=== PATIENT | male | born 2000 | race African-American/Black ===

== ENCOUNTER 2024-01-13 03:37 | Emergency (ER) | payer MEDICARE, MEDICAID ==
[~2024-01-13] VITALS: Ht 172.7 cm; Wt 57.0 kg
[~2024-01-13 03:37] MED LIST: OXYC-100 PO
[2024-01-13 03:54] VITALS: O2SAT 99
[2024-01-13] MEDS ORDERED: ONDANSETRON HCL 4MG/2ML INJ IV STA (05:16)
[2024-01-13] MEDS ORDERED: MORPHINE SULFATE 4 MG/ML INJ (FOR IV/IM USE) IV STA (05:16)
[2024-01-13] MEDS: HYDROCODONE/ACETAMINOPHEN 5/325MG TABLET PO ONE (07:30)
[2024-01-13] MEDS: MORPHINE SULFATE 4 MG/ML INJ (FOR IV/IM USE) IV NR (08:23)
[2024-01-13] MEDS: ONDANSETRON HCL 4MG/2ML INJ IV NR (08:23)
[2024-01-13 18:31] VITALS: BP 109/62; PULSE 78; RESP 18; TEMP 98.4
== END 2024-01-13 18:54 | disposition home or self-care (01) ==
LOC: ER 03:37
DX: R10.9 Unspecified abdominal pain (principal); L89.159 Pressure ulcer of sacral region, unspecified stage; Z98.890 Other specified postprocedural states
CPT/HCPCS: 74176; 99284

== ENCOUNTER 2024-01-14 19:26 | Emergency (ER) | payer MEDICARE, MEDICAID ==
[~2024-01-14] VITALS: Ht 177.8 cm; Wt 68.0 kg
[2024-01-14 19:48] VITALS: O2SAT 97
[2024-01-14] MEDS: OXYCODONE HCL/ACETAMINOPHEN 5/325MG TABLET PO ONE (21:01)
[2024-01-15 12:57] VITALS: BP 116/74; PULSE 70; RESP 16; TEMP 97
[2024-01-15 12:58] VITALS: BP 116/74; PULSE 70; RESP 16; TEMP 97
[2024-01-15 14:47] VITALS: BP 103/76; PULSE 70
== END 2024-01-15 12:45 | disposition left against medical advice (07) ==
LOC: ER 19:26 → UNDOADMIN 01-15 08:01 → 5WST 01-15 08:01 → ER 01-15 12:45 → UNDODISIN 01-15 15:15 → ER 01-16 06:49
DX: T83.028A Displacement of other urinary catheter, initial encounter (principal); X58.XXXA Exposure to other specified factors, initial encounter
CPT/HCPCS: 99285

== ENCOUNTER 2024-02-02 14:28 | Emergency (ER) | payer MEDICARE, MEDICAID ==
[~2024-02-02] VITALS: Ht 175.3 cm; Wt 59.0 kg
[2024-02-02 14:35] VITALS: O2SAT 100
[2024-02-02 23:20] VITALS: BP 110/68; PULSE 82; RESP 18; O2SAT 100
== END 2024-02-02 23:30 | disposition left against medical advice (07) ==
LOC: ER 14:28
DX: K62.5 Hemorrhage of anus and rectum (principal); Z98.890 Other specified postprocedural states
CPT/HCPCS: 99283

== ENCOUNTER 2024-02-11 14:59 | Inpatient (IN) | payer MEDICARE, MEDICAID ==
[~2024-02-11] VITALS: Ht 165.1 cm; Wt 55.3 kg
[2024-02-11] MEDS: MORPHINE SULFATE 4 MG/ML INJ (FOR IV/IM USE) IV ONE (15:35)
[2024-02-11] MEDS: PIPERACILLIN/TAZO 3.375G/50ML 50 ML IV ONE (17:45)
[2024-02-11] MEDS: VANCOMYCIN 1G PREMIX 200 ML IV ONE (18:23)
[2024-02-11] MEDS ORDERED: ACETAMINOPHEN 325MG TABLET PO PRN ×2 (22:45)
[2024-02-11] MEDS ORDERED: DOCUSATE SODIUM 100MG CAPSULE PO PRN (22:45)
[2024-02-11] MEDS ORDERED: CLONIDINE 0.1MG TABLET PO PRN (22:45)
[2024-02-11] MEDS ORDERED: GUAIFENESIN 200MG/10ML SUGAR FREE UDC PO PRN (22:45)
[2024-02-11] MEDS ORDERED: IPRATROPIUM/ALBUTEROL 0.5-3(2.5)MG/3ML NEB HHN PRN (22:45)
[2024-02-11] MEDS ORDERED: MAGNESIUM/ALUMINUM HYDROXIDE/SIMETHICONE 30ML UDC PO PRN (22:45)
[2024-02-11] MEDS ORDERED: LORAZEPAM 0.5MG TABLET PO PRN (22:45)
[2024-02-11] MEDS ORDERED: ONDANSETRON HCL 4MG/2ML INJ IV PRN (22:45)
[2024-02-11] MEDS: HYDROCODONE/ACETAMINOPHEN 7.5/325MG TABLET PO PRN (23:50)
[2024-02-11] MEDS: PIPERACILLIN/TAZO 3.375G/50ML 50 ML IV NR (23:50)
[2024-02-12 06:43] LABS: BASOPHILS % 0.4 % (0.0-2.0); DIFFERENTIAL COMMENT 0; EOSINOPHILS % 1.9 % (0.0-5.0); HEMATOCRIT. 34.8 % (42.0-52.0); HEMOGLOBIN. 10.2 g/dL (14.0-18.0); LYMPHOCYTES % 38.3 % (20.0-50.0); MEAN CORPUSCULAR HEMOGLOBIN 20.8 pg (28.0-32.0); MEAN CORPUSCULAR HGB CONC 29.4 g/dL (31.0-37.0); MEAN CORPUSCULAR VOLUME 70.9 fL (80.0-94.0); MEAN PLATELET VOLUME 6.8 fl (7.4-10.4); MONOCYTES % 8.7 % (2.0-8.0); NEUTROPHILS % 50.7 % (40.0-76.0); PLATELET 301 x1000/uL (130-400); RED BLOOD CELL COUNT 4.91 mill/uL (4.7-6.1); RED CELL DISTRIBUTION WIDTH 20.9 % (11.6-14.6); WHITE BLOOD COUNT 4.6 x1000/uL (4.5-11.0)
[2024-02-12 06:56] LABS: CHLORIDE 106 mEq/L (98-107); POTASSIUM 3.9 mEq/L (3.5-5.1); SODIUM 140 mEq/L (136-145)
[2024-02-12 06:57] LABS: CALCIUM 9.1 mg/dL (8.7-10.4); CARBON DIOXIDE 31 mEq/L (21-32)
[2024-02-12 07:02] LABS: CREATININE 0.6 mg/dL (0.6-1.3); GLUCOSE 75 mg/dL (70-105); UREA NITROGEN BLOOD 15 mg/dL (9-23)
[2024-02-12 07:04] LABS: CREATINE KINASE 73 IU/L (46-171)
[2024-02-12 07:05] LABS: ALANINE AMINOTRANSFERASE < 7 IU/L (10-49); ALBUMIN 3.7 g/dL (3.2-4.8); ALBUMIN 3.8 g/dL (3.2-4.8); ASPARTATE AMINOTRANSFERASE 12 IU/L (<34); BILIRUBIN TOTAL < 0.2 mg/dL (0.1-1.0); PROTEIN TOTAL 7.7 g/dL (6.0-8.3)
[2024-02-12 07:08] LABS: T4 FREE 0.93 ng/dL (0.89-1.76); THYROID STIMULATING HORMONE 0.88 uIU/mL (0.55-4.78)
[2024-02-12 07:12] LABS: BILIRUBIN DIRECT < 0.1 mg/dL (<=3.0)
[2024-02-12] MEDS ORDERED: NALOXONE HCL 0.4MG/ML VIAL IV PRN (07:30)
[2024-02-12] MEDS: ENOXAPARIN 40MG/0.4ML SYR SUBCUT SCH (09:15)
[2024-02-12] MEDS: PIPERACILLIN/TAZO 3.375G/50ML 50 ML IV NR (10:06)
[2024-02-12] MEDS: FERROUS SULFATE 325MG TABLET PO SCH (11:06)
[2024-02-12 11:47] LABS: IRON 20 ug/dL (65-175)
[2024-02-12 11:50] LABS: TOTAL IRON BINDING CAPACITY 336 ug/dl (250-425)
[2024-02-12 12:00] VITALS: BP 106/69; PULSE 96; RESP 18; TEMP 36.114; O2SAT 97
[2024-02-12 14:01] VITALS: BP 115/82; PULSE 88; RESP 18; TEMP 36.2512
[2024-02-12] MEDS: HYDROCODONE/ACETAMINOPHEN 5/325MG TABLET PO PRN (17:53)
[2024-02-12] MEDS: PIPERACILLIN/TAZO 3.375G/50ML 50 ML IV SCH (18:38)
[2024-02-12] MEDS: FAMOTIDINE 20MG TABLET PO SCH (21:00)
[2024-02-13] MEDS ORDERED: LIDOCAINE HCL/EPINEPHRINE 1%-EPI 1:100,000 20ML VIAL INFIL NR (09:00)
[2024-02-13 12:00] VITALS: BP 113/67; PULSE 79; RESP 19; O2SAT 96
[2024-02-13] MEDS ORDERED: VANCOMYCIN 1.5GM/250ML IV NR (18:30)
[2024-02-13 20:00] VITALS: BP 102/64; PULSE 99; RESP 19; TEMP 36.61404; O2SAT 100
[2024-02-14] MEDS: VANCOMYCIN 1.25GM PMX (XELLIA) 250 ML IV SCH (06:00)
[2024-02-14] MEDS: SODIUM HYPOCHLORITE (0.25%) 480ML SOLUTION (HALF STRENGTH) TOP SCH (12:30)
[2024-02-14] MEDS: VANCOMYCIN 1G PREMIX 200 ML IV SCH (13:48)
[2024-02-14 17:22] VITALS: BP 112/74; PULSE 86; TEMP 97.7; O2SAT 100
[2024-02-14 17:36] VITALS: BP 112/74; PULSE 86; RESP 19
[2024-02-14] MEDS: SULFAMETHOXAZOLE/TRIMETHOPRIM 800/160MG TABLET PO SCH (21:00)
== END 2024-02-14 21:47 | DRG 500 ==
LOC: ER 14:59 → EDBEDREQTM 19:20 → EDBEDREQ 19:20 → 5WST 02-12 03:37 → 6EST 02-12 11:51
PROVIDERS: ADMIT Internal Medicine; ATTEND Internal Medicine
PROC: 0KBP0ZZ Excision of Left Hip Muscle, Open Approach (ICD-10-PCS; principal; 2024-02-13)
PROC: 0KBN0ZZ Excision of Right Hip Muscle, Open Approach (ICD-10-PCS; 2024-02-13)
DX: M46.1 Sacroiliitis, not elsewhere classified (principal); L89.154 Pressure ulcer of sacral region, stage 4; R53.2 Functional quadriplegia; D50.9 Iron deficiency anemia, unspecified; G89.29 Other chronic pain; Z79.2 Long term (current) use of antibiotics; Z74.01 Bed confinement status; S80.211A Abrasion, right knee, initial encounter; Z90.49 Acquired absence of other specified parts of digestive tract; Z79.899 Other long term (current) drug therapy; X58.XXXA Exposure to other specified factors, initial encounter; Y93.89 Activity, other specified; Y92.89 Other specified places as the place of occurrence of the external cause; Y99.8 Other external cause status
CPT/HCPCS: 36415; 74176; 80048; 80061; 80076; 82040; 82550; 82728; 83540; 83550; 83605; 84145; 84439; 84443; 85025; 87070; 97161; 97166; 99285; J1650; J2270; J2543; J3370; J3490

== ENCOUNTER 2024-04-01 11:33 | Emergency (ER) | payer MEDICARE, MEDICAID ==
[~2024-04-01] VITALS: Ht 157.5 cm; Wt 65.0 kg
[2024-04-01 11:37] VITALS: BP 110/82; PULSE 105; RESP 20; TEMP 98.7; O2SAT 99
== END 2024-04-01 11:48 | disposition left against medical advice (07) ==
LOC: ER 11:33
DX: R68.89 Other general symptoms and signs (principal); Z53.21 Procedure and treatment not carried out due to patient leaving prior to being seen by health care provider

== ENCOUNTER 2025-02-09 22:46 | Emergency (ER) | payer MEDICARE, MEDICAID ==
[~2025-02-09] VITALS: Ht 172.7 cm; Wt 63.0 kg
[~2025-02-09 22:46] MED LIST changes: +ACET-2708 MT; +BACL-141 GT; +FAMO20TA8 PO; +FERR-63 PO; +FLUO10TA35 PO; +HYDR-4001 MT; +IBUP-2030 MT; +OLAN10TA72 PO; +OXYC1TAB5 PO; +SULF1TAB48 PO
[2025-02-09 23:07] VITALS: O2SAT 99
[2025-02-09 23:35] VITALS: TEMP 37; O2SAT 99
[2025-02-09] MEDS ORDERED: HYDR-4009 MT (23:39)
[2025-02-09] MEDS: MORPHINE SULFATE 4 MG/ML INJ (FOR IV/IM USE) IM ONE (23:49)
[2025-02-10 00:02] VITALS: BP 120/76; PULSE 126; RESP 18
== END 2025-02-10 02:53 | disposition home or self-care (01) ==
LOC: ER 22:46
DX: G89.29 Other chronic pain (principal); G82.20 Paraplegia, unspecified; R10.84 Generalized abdominal pain; Z79.899 Other long term (current) drug therapy; Z93.3 Colostomy status
CPT/HCPCS: 99283; 96372; J2270

== ENCOUNTER 2025-04-02 16:02 | Emergency (ER) | payer MEDICARE, MEDICAID ==
[~2025-04-02] VITALS: Ht 165.1 cm; Wt 61.0 kg
[~2025-04-02 16:02] MED LIST changes: -HYDR-4001 MT; +HYDR-4009 MT; -OLAN10TA72 PO; -OXYC-100 PO; -OXYC1TAB5 PO; -SULF1TAB48 PO
[2025-04-02 16:12] VITALS: BP 127/86; PULSE 98; RESP 16; TEMP 37.1; O2SAT 99
[2025-04-02] MEDS: ACETAMINOPHEN 325MG TABLET PO ONE (18:43)
== END 2025-04-02 20:33 | disposition home or self-care (01) ==
LOC: ER 16:02
DX: R10.9 Unspecified abdominal pain (principal); Z79.899 Other long term (current) drug therapy; Z98.890 Other specified postprocedural states
CPT/HCPCS: 99283

== ENCOUNTER 2025-04-04 01:43 | Inpatient (IN) | payer MEDICARE, MEDICAID ==
[~2025-04-04] VITALS: Ht 172.7 cm; Wt 54.9 kg
[2025-04-04] MEDS: SODIUM CHLORIDE 0.9% (SEPSIS BOLUS) IV ONE (02:39)
[2025-04-04] MEDS: PIPERACILLIN/TAZO 3.375G/50ML 50 ML IV ONE (03:43)
[2025-04-04 04:28] LABS: BASOPHILS % 0.3 % (0.0-2.0); EOSINOPHILS % 0.1 % (0.0-5.0); HEMATOCRIT. 39.8 % (42.0-52.0); HEMOGLOBIN. 11.4 g/dL (14.0-18.0); LYMPHOCYTES % 9.2 % (20.0-50.0); MEAN PLATELET VOLUME 7.6 fl (7.4-10.4); MONOCYTES % 5.9 % (2.0-8.0); NEUTROPHILS % 84.5 % (40.0-76.0); PLATELET 361 x1000/uL (130-400); RED BLOOD CELL COUNT 5.11 mill/uL (4.7-6.1); RED CELL DISTRIBUTION WIDTH 24.4 % (11.6-14.6)
[2025-04-04] MEDS: ACETAMINOPHEN 1000MG/100ML 100 ML IV SCH (04:30)
[2025-04-04 04:33] LABS: ADD RBC MORPHOLOGY YES
[2025-04-04] MEDS: ONDANSETRON HCL 4MG/2ML INJ IV ONE (04:33)
[2025-04-04 04:40] LABS: INR 1.1
[2025-04-04 04:46] LABS: CREATININE 0.6 mg/dL (0.6-1.3); UREA NITROGEN BLOOD 9 mg/dL (9-23)
[2025-04-04 04:48] LABS: ASPARTATE AMINOTRANSFERASE 11 IU/L (<34); BILIRUBIN DIRECT 0.1 mg/dL (<=3.0); BILIRUBIN TOTAL 0.3 mg/dL (0.1-1.0)
[2025-04-04 04:49] LABS: PROTEIN TOTAL 10.8 g/dL (6.0-8.3)
[2025-04-04 05:18] LABS: INFLUENZA TYPE A Presumptive Negative (Pres. Neg.)
[2025-04-04 05:20] LABS: INFLUENZA TYPE B Presumptive Negative (Pres. Neg.)
[2025-04-04 05:21] LABS: RESPIRATORY SYNCYTIAL VIRUS Not Detected (Not Detectd)
[2025-04-04] MEDS: VANCOMYCIN 1G PREMIX 200 ML IV ONE (05:46)
[2025-04-04] MEDS: MORPHINE SULFATE 4 MG/ML INJ (FOR IV/IM USE) IV ONE (06:33)
[2025-04-04 07:11] LABS: PLATELET ESTIMATE NORMAL
[2025-04-04] MEDS: MORPHINE SULFATE 4 MG/ML INJ (FOR IV/IM USE) IV PRN (08:24)
[2025-04-04] MEDS ORDERED: ONDANSETRON HCL 4MG/2ML INJ IV PRN (12:45)
[2025-04-04] MEDS ORDERED: DOCUSATE SODIUM 100MG CAPSULE PO PRN (12:45)
[2025-04-04] MEDS ORDERED: ACETAMINOPHEN 325MG TABLET PO PRN ×2 (12:45)
[2025-04-04] MEDS ORDERED: CLONIDINE 0.1MG TABLET PO PRN (12:45)
[2025-04-04] MEDS ORDERED: MORPHINE SULFATE 4 MG/ML INJ (FOR IV/IM USE) IV PRN (13:15)
[2025-04-04] MEDS ORDERED: NALOXONE HCL 0.4MG/ML VIAL IV PRN (13:15)
[2025-04-04] MEDS ORDERED: SODIUM CHLORIDE 0.9% 500 ML IV SCH (14:00)
[2025-04-04] MEDS: PIPERACILLIN/TAZO 3.375G/50ML 50 ML IV SCH (15:56)
[2025-04-04] MEDS: DEXT 5%/0.45% NACL 1000ML 1,000 ML IV SCH (15:56)
[2025-04-04] MEDS: PANTOPRAZOLE SODIUM 40 MG/VIAL IV SCH (15:56)
[2025-04-04] MEDS: ENOXAPARIN 40MG/0.4ML SYR SUBCUT SCH (15:58)
[2025-04-04 17:20] VITALS: PULSE 107; RESP 16; O2SAT 100
[2025-04-04] MEDS: IPRATROPIUM/ALBUTEROL 0.5-3(2.5)MG/3ML NEB HHN SCH (17:20)
[2025-04-04 17:24] LABS: BG BASE EXCESS 1.3 mmol/L (-2.0-3.0); BG CARBOXYHEMOGLOBIN 0.4 % (0.5-1.5); BG DEOXYHEMOGLOBIN 0.6 % (0.0-5.0); BG FRACTION INSPIRED OXYGEN 28; BG HCO3 ACT 32.2 mmol/L (21.0-28.0); BG METHEMOGLOBIN 0.3 % (0.5-1.5); BG OXYGEN SATURATION 99.4 % (94.0-98.0); BG OXYHEMOGLOBIN 98.7 % (94.0-98.0); BG PCO2 98.9 mmHg (35.0-48.0); BG PH 7.131 (7.350-7.450); BG PO2 169.7 mmHg (83.0-108.0); BG SAMPLE SITE RIGHT BRACHIAL; BG TOTAL HEMOGLOBIN 10.0 g/dL (13.5-17.5); BG VENT MODE NASAL CANNULA
[2025-04-04 20:00] VITALS: BP 109/62; PULSE 112; RESP 20; TEMP 36.8; O2SAT 99
[2025-04-04 21:15] VITALS: PULSE 118; RESP 15
[2025-04-04 21:35] VITALS: RESP 26
[2025-04-04 22:20] VITALS: BP 91/54; PULSE 107; RESP 22; O2SAT 100
[2025-04-05] VITALS (16 sets, daily range): BP systolic 96–108; BP diastolic 58–73; PULSE 96–113; RESP 13–32; TEMP 36.2–37; O2SAT 96–100
[2025-04-05] MEDS: MORPHINE SULFATE 10 MG/ML INJ (NOT FOR IM USE) IV PRN (03:05)
[2025-04-05] MEDS: VANCOMYCIN 1GM/200ML PMX (BAXTER) IV SCH (03:46)
[2025-04-05 11:50] LABS: BG BASE EXCESS 7.9 mmol/L (-2.0-3.0); BG CARBOXYHEMOGLOBIN 0.6 % (0.5-1.5); BG DEOXYHEMOGLOBIN 0.3 % (0.0-5.0); BG FRACTION INSPIRED OXYGEN 21; BG HCO3 ACT 34.5 mmol/L (21.0-28.0); BG METHEMOGLOBIN 0.3 % (0.5-1.5); BG OXYGEN SATURATION 99.7 % (94.0-98.0); BG OXYHEMOGLOBIN 98.8 % (94.0-98.0); BG PCO2 60.9 mmHg (35.0-48.0); BG PH 7.371 (7.350-7.450); BG PO2 166.1 mmHg (83.0-108.0); BG SAMPLE SITE RIGHT RADIAL; BG TOTAL HEMOGLOBIN 9.3 g/dL (13.5-17.5); BG VENT MODE ROOM AIR
[2025-04-06] VITALS (19 sets, daily range): BP systolic 92–112; BP diastolic 59–93; PULSE 93–117; RESP 8–31; TEMP 36.3–37.1; O2SAT 96–100
[2025-04-06 16:46] LABS: BG BASE EXCESS 13.2 mmol/L (-2.0-3.0); BG CARBOXYHEMOGLOBIN 1.0 % (0.5-1.5); BG DEOXYHEMOGLOBIN 0.0 % (0.0-5.0); BG FLOW(L/min) 3.00 L/min; BG FRACTION INSPIRED OXYGEN 32; BG HCO3 ACT 40.8 mmol/L (21.0-28.0); BG METHEMOGLOBIN 0.3 % (0.5-1.5); BG OXYGEN SATURATION 100.0 % (94.0-98.0); BG OXYHEMOGLOBIN 98.7 % (94.0-98.0); BG PCO2 73.6 mmHg (35.0-48.0); BG PH 7.362 (7.350-7.450); BG PO2 198.5 mmHg (83.0-108.0); BG SAMPLE SITE RIGHT RADIAL; BG TOTAL HEMOGLOBIN 9.5 g/dL (13.5-17.5); BG VENT MODE NASAL CANNULA
[2025-04-07] VITALS (18 sets, daily range): BP systolic 105–122; BP diastolic 56–86; PULSE 82–112; RESP 0–41; TEMP 36.4–36.6; O2SAT 95–100
[2025-04-07] MEDS ORDERED: HYDRALAZINE 20MG/ML VIAL IV PRN (01:30)
[2025-04-07] MEDS: FAMOTIDINE 20MG TABLET PO SCH (08:51)
[2025-04-08] VITALS (17 sets, daily range): BP systolic 97–116; BP diastolic 57–72; PULSE 81–120; RESP 11–35; TEMP 36.3–36.7; O2SAT 99–100
[2025-04-09] VITALS (18 sets, daily range): BP systolic 101–122; BP diastolic 60–81; PULSE 73–99; RESP 0–29; TEMP 36.2–36.8; O2SAT 93–100
[2025-04-09 06:20] LABS: BASOPHILS % 0.2 % (0.0-2.0); EOSINOPHILS % 3.4 % (0.0-5.0); HEMATOCRIT. 29.5 % (42.0-52.0); HEMOGLOBIN. 8.2 g/dL (14.0-18.0); LYMPHOCYTES % 32.4 % (20.0-50.0); MEAN PLATELET VOLUME 7.2 fl (7.4-10.4); MONOCYTES % 9.5 % (2.0-8.0); NEUTROPHILS % 54.5 % (40.0-76.0); PLATELET 303 x1000/uL (130-400); RED BLOOD CELL COUNT 3.74 mill/uL (4.7-6.1); RED CELL DISTRIBUTION WIDTH 23.6 % (11.6-14.6)
[2025-04-09 06:41] LABS: CREATININE 0.5 mg/dL (0.6-1.3); UREA NITROGEN BLOOD 6 mg/dL (9-23)
[2025-04-09] MEDS: HYDROCODONE/ACETAMINOPHEN 5/325MG TABLET PO PRN (13:10)
[2025-04-10] VITALS (17 sets, daily range): BP systolic 82–114; BP diastolic 45–73; PULSE 65–107; RESP 14–30; TEMP 36.2–36.8; O2SAT 100
[2025-04-11] VITALS (16 sets, daily range): BP systolic 74–108; BP diastolic 48–70; PULSE 79–110; RESP 13–35; TEMP 36.3–36.8; O2SAT 99–100
[2025-04-11] MEDS: IPRATROPIUM/ALBUTEROL 0.5-3(2.5)MG/3ML NEB HHN PRN (08:36)
[2025-04-11] MEDS: MORPHINE SULFATE 10 MG/ML INJ (NOT FOR IM USE) IV PRN (11:59)
[2025-04-12] VITALS (13 sets, daily range): BP systolic 90–113; BP diastolic 48–73; PULSE 89–122; RESP 11–38; TEMP 36.4–36.6; O2SAT 96–100
[2025-04-12 05:44] LABS: BASOPHILS % 0.2 % (0.0-2.0); EOSINOPHILS % 3.5 % (0.0-5.0); HEMATOCRIT. 32.2 % (42.0-52.0); HEMOGLOBIN. 9.1 g/dL (14.0-18.0); LYMPHOCYTES % 27.4 % (20.0-50.0); MEAN PLATELET VOLUME 7.1 fl (7.4-10.4); MONOCYTES % 8.8 % (2.0-8.0); NEUTROPHILS % 60.1 % (40.0-76.0); PLATELET 330 x1000/uL (130-400); RED BLOOD CELL COUNT 4.12 mill/uL (4.7-6.1); RED CELL DISTRIBUTION WIDTH 24.1 % (11.6-14.6)
[2025-04-12 05:46] LABS: CREATININE 0.5 mg/dL (0.6-1.3)
[2025-04-12 05:47] LABS: UREA NITROGEN BLOOD 7 mg/dL (9-23)
[2025-04-12] MEDS: MORPHINE SULFATE 4 MG/ML INJ (FOR IV/IM USE) IV PRN (20:06)
[2025-04-13] VITALS (13 sets, daily range): BP systolic 92–112; BP diastolic 42–70; PULSE 78–121; RESP 19–33; TEMP 36.4–36.8; O2SAT 77–100
[2025-04-13] MEDS ORDERED: NALOXONE HCL 0.4MG/ML VIAL IV PRN (12:00)
[2025-04-13] MEDS: FLUOXETINE HCL 20MG CAPSULE PO SCH (12:00)
[2025-04-13] MEDS: PRAZOSIN HCL 1MG CAPSULE PO SCH (20:03)
[2025-04-14] VITALS (18 sets, daily range): BP systolic 85–120; BP diastolic 43–80; PULSE 71–122; RESP 11–40; TEMP 36.3–36.8; O2SAT 98–100
[2025-04-15] VITALS (17 sets, daily range): BP systolic 91–105; BP diastolic 48–66; PULSE 74–115; RESP 8–36; TEMP 36.5–36.9; O2SAT 100
[2025-04-16] VITALS (14 sets, daily range): BP systolic 100–116; BP diastolic 66–89; PULSE 67–113; RESP 8–35; TEMP 36.3–36.9; O2SAT 100
[2025-04-17] VITALS (15 sets, daily range): BP systolic 111; BP diastolic 59; PULSE 84–110; RESP 2–38; TEMP 36.2–36.6
[2025-04-17] MEDS ORDERED: HYDROCODONE/ACETAMINOPHEN 5/325MG TABLET PO PRN (20:10)
[2025-04-18 00:20] VITALS: RESP 28
[2025-04-18 06:43] VITALS: RESP 28
[2025-04-18 08:00] VITALS: BP 104/65; PULSE 80; RESP 19; TEMP 36.1; O2SAT 100
[2025-04-18 12:00] VITALS: BP 108/73; PULSE 85; RESP 16; TEMP 36.6; O2SAT 99
[2025-04-18 16:00] VITALS: BP 114/77; PULSE 63; RESP 18; TEMP 36.8; O2SAT 100
[2025-04-18 23:00] VITALS: RESP 22
[2025-04-19 04:00] VITALS: RESP 20
[2025-04-19 12:00] VITALS: BP 103/52; RESP 18; TEMP 36.4; O2SAT 100
[2025-04-19 16:43] VITALS: BP 0/0; PULSE 0; RESP 0; TEMP 36.5292
[2025-04-19 22:08] VITALS: RESP 20
[2025-04-19 23:45] VITALS: RESP 20
[2025-04-20 03:30] VITALS: RESP 22
[2025-04-20 23:17] VITALS: RESP 24
[2025-04-21 03:35] VITALS: RESP 21
[2025-04-21] MEDS: ENOXAPARIN 40MG/0.4ML SYR SUBCUT SCH (15:00)
[2025-04-21] MEDS: SODIUM HYPOCHLORITE 0.125% 473ML SOLUTION TOP SCH (15:30)
[2025-04-21 21:58] VITALS: RESP 42
[2025-04-21 23:58] VITALS: RESP 38
[2025-04-22 04:23] VITALS: RESP 35
[2025-04-22 20:01] VITALS: RESP 35
[2025-04-22 23:27] VITALS: RESP 35
[2025-04-23] VITALS: PULSE 129; RESP 19; O2SAT 100
[2025-04-23 08:00] VITALS: BP 103/75; PULSE 80; RESP 20; TEMP 36.6; O2SAT 100
[2025-04-23 12:00] VITALS: BP 108/46; PULSE 88; RESP 19; TEMP 36.9; O2SAT 98
[2025-04-23 16:00] VITALS: BP 111/63; PULSE 103; RESP 20; TEMP 35.5; O2SAT 100
[2025-04-23 22:12] VITALS: RESP 25
[2025-04-24 20:00] VITALS: BP 112/68
[2025-04-24 22:00] VITALS: RESP 30
[2025-04-25] VITALS: BP 109/74; PULSE 112; RESP 20; TEMP 36.4; O2SAT 100
[2025-04-25 03:00] VITALS: RESP 28
[2025-04-25 09:39] VITALS: RESP 38
[2025-04-25 12:00] VITALS: BP 114/60; PULSE 100; RESP 15; TEMP 36.3; O2SAT 99
[2025-04-25 16:00] VITALS: BP 120/68; PULSE 72; RESP 16; TEMP 36.2; O2SAT 99
[2025-04-26 21:38] VITALS: RESP 38
[2025-04-27 01:21] VITALS: RESP 23
[2025-04-27 04:28] VITALS: RESP 35
[2025-04-27 09:50] VITALS: RESP 38
[2025-04-27 13:37] VITALS: RESP 35
[2025-04-27 17:37] VITALS: RESP 35
[2025-04-27 21:39] VITALS: RESP 32
[2025-04-28 01:45] VITALS: RESP 35
[2025-04-28 08:00] VITALS: BP 99/62; PULSE 121; RESP 21; TEMP 36.3
[2025-04-28] MEDS: MORPHINE SULFATE 4 MG/ML INJ (FOR IV/IM USE) IV PRN (08:07)
[2025-04-28 08:42] VITALS: RESP 35
[2025-04-28 20:00] VITALS: BP 103/61; PULSE 67; RESP 20; TEMP 36.4; O2SAT 100
[2025-04-28 21:28] VITALS: RESP 31
[2025-04-29] VITALS (7 sets, daily range): BP systolic 98–116; BP diastolic 62–71; PULSE 110–125; RESP 18–30; TEMP 36.1–36.3; O2SAT 96–100
[2025-04-29 14:19] LABS: BASOPHILS % 0.3 % (0.0-2.0); EOSINOPHILS % 0.8 % (0.0-5.0); HEMATOCRIT. 31.4 % (42.0-52.0); HEMOGLOBIN. 9.0 g/dL (14.0-18.0); LYMPHOCYTES % 17.2 % (20.0-50.0); MEAN PLATELET VOLUME 8.1 fl (7.4-10.4); MONOCYTES % 14.7 % (2.0-8.0); NEUTROPHILS % 67.0 % (40.0-76.0); PLATELET 332 x1000/uL (130-400); RED BLOOD CELL COUNT 4.01 mill/uL (4.7-6.1); RED CELL DISTRIBUTION WIDTH 21.5 % (11.6-14.6)
[2025-04-29 14:36] LABS: PHOSPHORUS 3.8 mg/dL (2.5-4.9)
[2025-04-29 14:39] LABS: CREATININE 0.4 mg/dL (0.6-1.3); UREA NITROGEN BLOOD 10 mg/dL (9-23)
[2025-04-30] VITALS (7 sets, daily range): BP systolic 105–115; BP diastolic 72–75; PULSE 98–115; RESP 16–33; TEMP 36.3–36.7; O2SAT 95–100
[2025-05-01] VITALS (7 sets, daily range): BP systolic 109–120; BP diastolic 61–79; PULSE 107–115; RESP 18–33; TEMP 36.3–36.8; O2SAT 94–99
[2025-05-02] VITALS (9 sets, daily range): BP systolic 97–117; BP diastolic 58–71; PULSE 100–115; RESP 19–31; TEMP 35.7–36.2; O2SAT 97–99
[2025-05-03 01:12] VITALS: RESP 28
[2025-05-03 04:00] VITALS: RESP 30
[2025-05-03 05:00] VITALS: BP 117/79; PULSE 99; RESP 20; TEMP 36.5; O2SAT 100
[2025-05-03] MEDS ORDERED: NALOXONE HCL 0.4MG/ML VIAL IV PRN (10:15)
[2025-05-03 10:40] VITALS: RESP 20
[2025-05-03 20:00] VITALS: BP 105/75; PULSE 132; RESP 18; TEMP 36.4; O2SAT 100
[2025-05-03] MEDS: OXYCODONE HCL/ACETAMINOPHEN 5/325MG TABLET PO PRN (20:49)
[2025-05-03 21:43] VITALS: RESP 32
[2025-05-04 00:05] VITALS: RESP 28
[2025-05-04 04:00] VITALS: BP 97/70; PULSE 114; RESP 18; TEMP 36.4; O2SAT 100
[2025-05-04 04:32] VITALS: RESP 28
[2025-05-05 13:52] VITALS: BP 106/67; PULSE 115; RESP 15; TEMP 36.7; O2SAT 95
[2025-05-05 22:00] VITALS: BP 109/65; PULSE 119; RESP 18; RESP 32; TEMP 35.6; O2SAT 98
[2025-05-06] VITALS (10 sets, daily range): BP systolic 110; BP diastolic 64; PULSE 105; RESP 20–31; TEMP 36.7; O2SAT 99
== END 2025-05-06 19:10 | disposition home health service (06) | DRG 871 ==
LOC: ER 01:43 → 8WST 06:56 → EDBEDREQSVC 07:03 → EDBEDREQTM 07:03 → EDBEDREQ 07:03 → 5EST 21:47 → 6WST 04-17 22:46 → 7EST 04-20 01:01
PROVIDERS: ADMIT Internal Medicine; ATTEND Internal Medicine
PROC: 5A09357 Assistance with Respiratory Ventilation, Less than 24 Consecutive Hours, Continuous Positive Airway Pressure (ICD-10-PCS; 2025-04-05)
PROC: 5A09357 Assistance with Respiratory Ventilation, Less than 24 Consecutive Hours, Continuous Positive Airway Pressure (ICD-10-PCS; 2025-04-06)
PROC: 5A09357 Assistance with Respiratory Ventilation, Less than 24 Consecutive Hours, Continuous Positive Airway Pressure (ICD-10-PCS; 2025-04-10)
PROC: 5A09357 Assistance with Respiratory Ventilation, Less than 24 Consecutive Hours, Continuous Positive Airway Pressure (ICD-10-PCS; 2025-04-11)
PROC: GZ56ZZZ Individual Psychotherapy, Supportive (ICD-10-PCS; principal; 2025-04-13)
PROC: 5A09357 Assistance with Respiratory Ventilation, Less than 24 Consecutive Hours, Continuous Positive Airway Pressure (ICD-10-PCS; 2025-04-16)
PROC: 5A09357 Assistance with Respiratory Ventilation, Less than 24 Consecutive Hours, Continuous Positive Airway Pressure (ICD-10-PCS; 2025-04-17)
PROC: 5A09357 Assistance with Respiratory Ventilation, Less than 24 Consecutive Hours, Continuous Positive Airway Pressure (ICD-10-PCS; 2025-04-19)
PROC: 5A09357 Assistance with Respiratory Ventilation, Less than 24 Consecutive Hours, Continuous Positive Airway Pressure (ICD-10-PCS; 2025-04-20)
PROC: 5A09357 Assistance with Respiratory Ventilation, Less than 24 Consecutive Hours, Continuous Positive Airway Pressure (ICD-10-PCS; 2025-04-21)
PROC: 5A09357 Assistance with Respiratory Ventilation, Less than 24 Consecutive Hours, Continuous Positive Airway Pressure (ICD-10-PCS; 2025-04-22)
PROC: 5A09357 Assistance with Respiratory Ventilation, Less than 24 Consecutive Hours, Continuous Positive Airway Pressure (ICD-10-PCS; 2025-04-23)
PROC: 5A09357 Assistance with Respiratory Ventilation, Less than 24 Consecutive Hours, Continuous Positive Airway Pressure (ICD-10-PCS; 2025-04-24)
PROC: 5A09357 Assistance with Respiratory Ventilation, Less than 24 Consecutive Hours, Continuous Positive Airway Pressure (ICD-10-PCS; 2025-04-25)
PROC: 5A09357 Assistance with Respiratory Ventilation, Less than 24 Consecutive Hours, Continuous Positive Airway Pressure (ICD-10-PCS; 2025-04-26)
PROC: 5A09357 Assistance with Respiratory Ventilation, Less than 24 Consecutive Hours, Continuous Positive Airway Pressure (ICD-10-PCS; 2025-04-27)
PROC: 5A09357 Assistance with Respiratory Ventilation, Less than 24 Consecutive Hours, Continuous Positive Airway Pressure (ICD-10-PCS; 2025-04-28)
PROC: 5A09357 Assistance with Respiratory Ventilation, Less than 24 Consecutive Hours, Continuous Positive Airway Pressure (ICD-10-PCS; 2025-04-29)
PROC: 5A09357 Assistance with Respiratory Ventilation, Less than 24 Consecutive Hours, Continuous Positive Airway Pressure (ICD-10-PCS; 2025-04-30)
PROC: 5A09357 Assistance with Respiratory Ventilation, Less than 24 Consecutive Hours, Continuous Positive Airway Pressure (ICD-10-PCS; 2025-05-01)
PROC: 5A09357 Assistance with Respiratory Ventilation, Less than 24 Consecutive Hours, Continuous Positive Airway Pressure (ICD-10-PCS; 2025-05-02)
PROC: 5A09357 Assistance with Respiratory Ventilation, Less than 24 Consecutive Hours, Continuous Positive Airway Pressure (ICD-10-PCS; 2025-05-03)
PROC: 5A09357 Assistance with Respiratory Ventilation, Less than 24 Consecutive Hours, Continuous Positive Airway Pressure (ICD-10-PCS; 2025-05-04)
PROC: 5A09357 Assistance with Respiratory Ventilation, Less than 24 Consecutive Hours, Continuous Positive Airway Pressure (ICD-10-PCS; 2025-05-05)
PROC: 5A09357 Assistance with Respiratory Ventilation, Less than 24 Consecutive Hours, Continuous Positive Airway Pressure (ICD-10-PCS; 2025-05-06)
DX: A41.9 Sepsis, unspecified organism (principal); J96.01 Acute respiratory failure with hypoxia; L89.324 Pressure ulcer of left buttock, stage 4; L89.314 Pressure ulcer of right buttock, stage 4; J96.02 Acute respiratory failure with hypercapnia; L89.154 Pressure ulcer of sacral region, stage 4; G82.20 Paraplegia, unspecified; D50.9 Iron deficiency anemia, unspecified; F32.9 Major depressive disorder, single episode, unspecified; G89.4 Chronic pain syndrome; F43.10 Post-traumatic stress disorder, unspecified; I95.9 Hypotension, unspecified; Z20.822 Contact with and (suspected) exposure to COVID-19; M62.50 Muscle wasting and atrophy, not elsewhere classified, unspecified site; Z88.8 Allergy status to other drugs, medicaments and biological substances; Z93.3 Colostomy status; Z90.2 Acquired absence of lung [part of]; Z91.199 Patient's noncompliance with other medical treatment and regimen due to unspecified reason
CPT/HCPCS: 36415; 36600; 71045; 80048; 80076; 80320; 82375; 82805; 83605; 83735; 83880; 84100; 84145; 85025; 87420; 87426; 87804; 93005; 93970; 94070; 94640; 94660; 94664; 94760; 96365; 96367; 96368; 96375; 98960; 99291; A4606; J1650; J2270; J2405; J2470; J2543; J3373; J7030; G0480; J0131